=== PATIENT | female | born 1990 | race African-American/Black ===

== ENCOUNTER 2023-06-05 14:42 | Emergency (ER) | payer SELFPAY ==
[2023-06-05 15:45] LABS: BASOPHILS ABSOLUTE AUTO 0.1 x10^3/uL (0.0-0.2); BASOPHILS PERCENT AUTO 0.5 % (0.2-1.2); EOSINOPHILS ABSOLUTE AUTO 0.1 x10^3/uL (0.0-0.5); EOSINOPHILS PERCENT AUTO 1.4 % (0.0-4.0); HEMOGLOBIN 11.7 g/dL (12.0-16.0); IMMATURE GRAN ABSOLUTE AUTO 0.01 x10^3/uL (0.00-0.07); LYMPHOCYTES ABSOLUTE AUTO 1.7 x10^3/uL (1.0-4.8); LYMPHOCYTES PERCENT AUTO 18.8 % (25.0-50.0); MEAN CORPUSCULAR HEMOGLOBIN 31.4 pg (26.0-32.0); MEAN CORPUSCULAR HGB CONC 33.4 g/dL (32.0-36.0); MEAN CORPUSCULAR VOLUME 93.8 fL (78.0-93.0); MONOCYTES ABSOLUTE AUTO 0.7 x10^3/uL (0.0-0.8); MONOCYTES PERCENT AUTO 7.3 % (2.0-11.0); NEUTROPHILS ABSOLUTE AUTO 6.6 x10^3/uL (1.8-7.7); NEUTROPHILS PERCENT AUTO 71.9 % (50.0-80.0); PLATELET COUNT,PLT 311 x10^3/uL (130-400); RED BLOOD CELL COUNT 3.73 x10^6/uL (4.00-5.50); WHITE BLOOD CELL COUNT,WBC 9.2 x10^3/uL (4.0-10.0)
== END 2023-06-05 16:13 | disposition home or self-care (01) ==
LOC: VM.ED 14:42
DX: O20.0 Threatened abortion (principal); Z3A.00 Weeks of gestation of pregnancy not specified
CPT/HCPCS: 36415; 81025; 84702; 85025; 99284